=== PATIENT | female | born 1985 | race Caucasian/White ===

== ENCOUNTER 2017-03-04 09:14 | Emergency (ER) | payer OTHER ==
--- NOTE | 2017-03-04 09:49 | ED ORDER SUMMARY ---
..... Patient: VIC DARDEN OrderSheet [facility] VisitID: [id number] [address] [place] [place] [address] 31y, F Registration Date/Time: 03/04/2017 ORDER SHEET Weight: 59.8 kg (stated) Allergies: No Known Drug Allergy GENERAL ORDERS: MEDICATION ORDERS: Augmentin PO 875 mg (liquid please. patient unable to swallow pills well. ) (09:45 03/04/2017 Jennifer Taylor) (Ack 9:50 Geoff Molina) (Cancelled: Patient Refusal 10:05 Geoff Molina) IV FLUIDS: ORDER SHEET NOTES: [Electronically signed by Simi Plascencia R.N. (11:14 03/04/2017)] [Electronically signed by Gabriel Holland Dr. (16:24 03/08/2017)] [Electronically locked/signed by Simi Plascencia R.N. (11:14 03/04/2017)]
--- NOTE | 2017-03-04 09:49 | ED NURSING NOTES ---
Clinical Report - Nurses [facility] [address] [place] [address] 03/04/2017 9:15 Patient: VIC DARDEN TRIAGE Triage time 09:32. Acuity: LEVEL 4. Chief Complaint: HEADACHE. Alert. No acute distress. JANELLE COMA SCORE: Janelle Coma Scale: 15- eyes open spontaneously (4); best verbal response- oriented x 4 (5); best motor response- obeys commands (6). --09:37 Simi Plascencia R.N. 09:32 03/04/17. BP: 112/69. HR: 79. RR: 16. O2 saturation: 100% on room air. Temp: 98.3 F (oral). Pain level now: 04/10. --09:37 Simi Plascencia R.N. Weight: 59.8 kg stated. Height/Length: 66 inches Per Patient. BMI: 21.3. --09:36 Simi Plascencia R.N. Medications None. --09:32 Simi Plascencia R.N. Medication/allergy information source: the patient. --09:37 Simi Plascencia R.N. Allergies No Known Drug Allergy. --09:32 Simi Plascencia R.N. History Arrived by private vehicle. Historian: patient. Accompanied by (her children). Primary physician (Shravan). This started about 3 days. ( intermittent for 3 months). PAST MEDICAL HX: Last normal menstrual period- January 2017. SOCIAL HX: Heavy tobacco smoker- less than 1 pack per day. No alcohol use or drug use. FALL RISK ASSESSMENT: Fall risk assessment completed. No fall risk identified. FUNCTIONAL ASSESSMENT: Functional assessment: no impairments noted. LEARNING NEEDS ASSESSMENT: The learning needs assessment revealed no barriers. --09:37 iSmi Plascencia R.N. PROBLEMS: Cystitis. Strep Throat. Abscess. Pharyngitis. Bronchitis. Sinusitis. URI. Anxiety Reaction. --09:33 Simi Plascencia R.N. ADDITIONAL SURGERIES: Lump removed right breast. Polyps on cervix. --09:33 Simi Plascencia R.N. Assessment GENERAL / NEURO / PSYCH: Alert. Oriented X 4. Appears in no acute distress. Patient appears calm and cooperative. RESPIRATORY: Respirations not labored. SKIN: Skin is warm and dry. --09:37 Simi Plascencia R.N. Interventions ID band on patient. To treatment room. --09:37 Simi Plascencia R.N. PHYSICAL ASSESSMENT 10:04 03/04/17. Ambulatory to room. GENERAL / NEURO / PSYCH: Alert. Oriented X 4. Appears in no acute distress. Speech within normal limits. RESPIRATORY: Respirations not labored. SKIN: Skin is warm and dry. --10:04 Simi Plascencia R.N. NURSING PROGRESS NOTES 10:04 03/04/17. Call light placed in reach. Patient placed in chair. --10:04 Simi Plascencia R.N. 10:08 pt refused the first dose of Augmentin offered, she wants to eat then get her meds from the pharmacy. --11:05 Simi Plascencia R.N. 10:25. The patient is calm and resting quietly. Overall patient status is the same- she states feels the same. GENERAL / NEURO / PSYCH: Alert. Oriented X 4. RESPIRATORY: No respiratory distress. SKIN: Skin is warm and dry. --11:06 Simi Plascencia R.N. DISPOSITION / DISCHARGE Departure time: 1025. Condition at departure: stable. No learning barriers present. Discharge instructions provided and reviewed with the patient. Reviewed medication(s). Prescription(s) given to the patient. Patient verbalized understanding. Written instructions provided in [place]. The patient was discharged home and accompanied by children. She left the Emergency Department ambulatory and via private vehicle. Patient driving. FALL RISK ASSESSMENT: Fall risk assessment completed. No fall risk identified. --11:13 Siim Plascencia R.N. 10:25 03/04/17. Pain level now: 10. Additional comments: here under an hour. --11:13 Simi Plascencia R.N. Locked/Released at 03/04/2017 11:14 by Simi Plascencia R.N.
--- NOTE | 2017-03-04 09:49 | ED NURSING NOTES ---
Clinical Report - Nurses [facility] [address] [place] [address] 03/04/2017 9:15 Patient: VIC DARDEN TRIAGE Triage time 09:32. Acuity: LEVEL 4. Chief Complaint: HEADACHE. Alert. No acute distress. JANELLE COMA SCORE: Janelle Coma Scale: 15- eyes open spontaneously (4); best verbal response- oriented x 4 (5); best motor response- obeys commands (6). --09:37 Simi Plascencia R.N. 09:32 03/04/17. BP: 112/69. HR: 79. RR: 16. O2 saturation: 100% on room air. Temp: 98.3 F (oral). Pain level now: 04/10. --09:37 Simi Plascencia R.N. Weight: 59.8 kg stated. Height/Length: 66 inches Per Patient. BMI: 21.3. --09:36 Simi Plascencia R.N. Medications None. --09:32 Simi Plascencia R.N. Medication/allergy information source: the patient. --09:37 Simi Plascencia R.N. Allergies No Known Drug Allergy. --09:32 Simi Plascencia R.N. History Arrived by private vehicle. Historian: patient. Accompanied by (her children). Primary physician (Shravan). This started about 3 days. ( intermittent for 3 months). PAST MEDICAL HX: Last normal menstrual period- January 2017. SOCIAL HX: Heavy tobacco smoker- less than 1 pack per day. No alcohol use or drug use. FALL RISK ASSESSMENT: Fall risk assessment completed. No fall risk identified. FUNCTIONAL ASSESSMENT: Functional assessment: no impairments noted. LEARNING NEEDS ASSESSMENT: The learning needs assessment revealed no barriers. --09:37 Simi Plascencia R.N. PROBLEMS: Cystitis. Strep Throat. Abscess. Pharyngitis. Bronchitis. Sinusitis. URI. Anxiety Reaction. --09:33 Simi Plascencia R.N. ADDITIONAL SURGERIES: Lump removed right breast. Polyps on cervix. --09:33 Simi Plascencia R.N. Assessment GENERAL / NEURO / PSYCH: Alert. Oriented X 4. Appears in no acute distress. Patient appears calm and cooperative. RESPIRATORY: Respirations not labored. SKIN: Skin is warm and dry. --09:37 Simi Plascencia R.N. Interventions ID band on patient. To treatment room. --09:37 Simi Plascencia R.N. PHYSICAL ASSESSMENT 10:04 03/04/17. Ambulatory to room. GENERAL / NEURO / PSYCH: Alert. Oriented X 4. Appears in no acute distress. Speech within normal limits. RESPIRATORY: Respirations not labored. SKIN: Skin is warm and dry. --10:04 Simi Plascencia R.N. NURSING PROGRESS NOTES 10:04 03/04/17. Call light placed in reach. Patient placed in chair. --10:04 Simi Plascencia R.N. 10:08 pt refused the first dose of Augmentin offered, she wants to eat then get her meds from the pharmacy. --11:05 Simi Plascencia R.N. 10:25. The patient is calm and resting quietly. Overall patient status is the same- she states feels the same. GENERAL / NEURO / PSYCH: Alert. Oriented X 4. RESPIRATORY: No respiratory distress. SKIN: Skin is warm and dry. --11:06 Simi Plascencia R.N. DISPOSITION / DISCHARGE Departure time: 1025. Condition at departure: stable. No learning barriers present. Discharge instructions provided and reviewed with the patient. Reviewed medication(s). Prescription(s) given to the patient. Patient verbalized understanding. Written instructions provided in [place]. The patient was discharged home and accompanied by children. She left the Emergency Department ambulatory and via private vehicle. Patient driving. FALL RISK ASSESSMENT: Fall risk assessment completed. No fall risk identified. --11:13 Simi Plascencia R.N. 10:25 03/04/17. Pain level now: 10. Additional comments: here under an hour. --11:13 Simi Plascencia R.N. Locked/Released at 03/04/2017 11:14 by Simi Plascencia R.N.
--- NOTE | 2017-03-04 09:49 | ED CLINICAL REPORT ---
Clinical Report - Physicians/Mid Levels [facility] [address] [place] [address] 03/04/2017 9:15 Patient: VIC DARDEN Time Seen: 0916; initial patient contact. Arrived- By private vehicle. Historian- patient. HISTORY OF PRESENT ILLNESS Chief Complaint: COUGH, SORE THROAT and SINUS PAIN. This started past several days but off and on for the past 3 months and is still present (unchanged). It was abrupt in onset and has been constant but is not gone now. The illness is described as moderate. The patient has had a cough, nasal congestion, sinus pressure and a nasal discharge. No fever or chills. Additional history - The patient has had contact with a sick individual. (family at home). Similar symptoms previously: None. Recent medical care: Not recently seen/assessed. REVIEW OF SYSTEMS No eye discomfort, nausea, vomiting, diarrhea or abdominal pain. No skin rash. All systems otherwise negative, except as recorded above. PAST HISTORY See nurses notes. SOCIAL HISTORY Smoker- current status unknown. No alcohol use or drug use. No recent travel. Is a local resident. ADDITIONAL NOTES The nursing notes have been reviewed. PHYSICAL EXAM Vital Signs: 03/04/2017 09:32 BP: 112/69. HR: 79. RR: 16. O2 saturation: 100%. Temp: 98.3 F. Pain level now: 6/10. Blood pressure normal. Oxygen saturation normal. Appearance: Alert. No acute distress. Head: Tenderness present to percussion/palpation of the sinuses: mild right and left frontal tenderness, left maxillary tenderness. Eyes: Pupils equal, round and reactive to light. Eyes normal inspection. ENT: Ears normal. Nose normal. Uvula midline. (no evidence of pots puffy tumor). (mild posterior pharynx hyperemia without swelling or masses. uvula midline.). Neck: Normal inspection. Mild right anterior neck lymphadenopathy present. Neck supple. No meningeal signs. CVS: Normal heart rate and rhythm. Heart sounds normal. Pulses normal. Respiratory: No respiratory distress. Breath sounds normal. No rales, rhonchi, wheezes or stridor. Abdomen: Soft and nontender. No organomegaly. Back: Normal inspection. Skin: Skin warm and dry. Normal skin color. No rash. Normal skin turgor. Extremities: Extremities exhibit normal ROM. No lower extremity edema. Neuro: Oriented X 3. No motor deficit. No sensory deficit. PROGRESS AND PROCEDURES Course of Care: The patient is a pleasant 31 yo female with smoking history presenting for evaluation of URI symptoms. Differential at this time is sinusitis, strep pharyngitis, or viral URI. Had discussion with patient in regards to rapid strep, conservative management, and abx treatment. After this discussion, patient agreeable to course of abx. Due to the treatment with augmentin, do not feel rapid strep would size changer. patient also with clear lungs, no fever, and non-toxic appearance. DO not feel patient has meningitis or serious bacterial infection. Do not feel benefit of chest xray outweighs the risk of radiation exposure. All questions answered. Patient agreeable to plan. Prior to discharge patient reevaluated and doing well. No other concerns. Discussed with patient her work up here in the ED including diagnosis, home care, follow up, and return precautions. All questions answered. Patient expressed understanding of these instructions and was agreeable to them. Disposition: Discharged. Condition: good. CLINICAL IMPRESSION 03/04/2017 09:32 BP: 112/69. HR: 79. RR: 16. O2 saturation: 100%. Temp: 98.3 F. Pain level now: 6/10. Blood pressure normal. Oxygen saturation normal. Acute maxillary and ethmoidal sinusitis INSTRUCTIONS Warnings: GENERAL WARNINGS: Return or contact your physician immediately if your condition worsens or changes unexpectedly, if not improving as expected, or if other problems arise. Specifically return if pain, vomiting, bleeding, breathing difficulty or fever. Your Current Medications: CONTINUE TAKING THE FOLLOWING MEDICATIONS: None*. Prescription Medications: Augmentin Liquid 600mg/5 mL: take seven (7) mL orally every 12 hours for 10 days. No refill. Substitution is permissible. (Disp suff quant) OTC Medications: Claritin 10 mg (available over the counter): take 1 tablet orally every 12 hours as needed for congestion. Dispense thirty (30). No refill. Substitution is permissible. Follow-up: Return to the emergency department as needed. Follow up with your doctor in three days. Reason for referral: recheck today's concerns. Summary of care provided to patient via paper. Screening today revealed the patient's blood pressure to be in the normal range. The patient should follow up with a primary care provider for blood pressure management. Understanding of the discharge instructions verbalized by patient. (Electronically signed by Gabriel Holland Dr. 03/08/2017 16:24)
--- NOTE | 2017-03-04 09:49 | ED ORDER SUMMARY ---
..... Patient: VIC DARDEN OrderSheet [facility] VisitID: [id number] [address] [place] [address] 31y, F Registration Date/Time: 03/04/2017 ORDER SHEET Weight: 59.8 kg (stated) Allergies: No Known Drug Allergy GENERAL ORDERS: MEDICATION ORDERS: Augmentin PO 875 mg (liquid please. patient unable to swallow pills well. ) (09:45 03/04/2017 Jennifer Taylor) (Ack 9:50 Geoff Molina) (Cancelled: Patient Refusal 10:05 Geoff Molina) IV FLUIDS: ORDER SHEET NOTES: [Electronically signed by Simi Plascencia R.N. (11:14 03/04/2017)] [Electronically signed by Gabriel Holland Dr. (16:24 03/08/2017)] [Electronically locked/signed by Simi Plascencia R.N. (11:14 03/04/2017)]
--- NOTE | 2017-03-08 16:24 | ED MAR SUMMARY ---
..... Medication Administration Record [facility] [address], [place] [id number] Patient: VIC DARDEN Visit ID: [id number] 31y, F Weight: 59.8 kg Height/Length: 66 in BMI: 21.3 ALLERGIES: No Known Drug Allergy
--- NOTE | 2017-03-08 16:24 | ED MED RECONCILIATION SUMMARY ---
Patient: VIC DARDEN Medication Reconciliation Report [facility] VisitID: [id number] [address] [place] [address] 31y, F Registration Date/Time: 03/04/2017 Weight: 59.8 kg Height/Length: 66 in. BMI: 21.3 ALLERGIES: No Known Drug Allergy The patient's Home Medications are listed below: NONE. The source(s) of the original Home Medication information: patient The following Medications were given to the patient in the Emergency Department: None. The following Medications were prescribed to the patient: Augmentin Liquid 600mg/5 mL: take seven (7) mL orally every 12 hours for 10 days. No refill. Substitution is permissible.(Disp suff quant) -- Gabriel Holland Dr. Claritin 10 mg (available over the counter): take 1 tablet orally every 12 hours as needed for congestion. Dispense thirty (30). No refill. Substitution is permissible. -- Gabriel Holland Dr.
--- NOTE | 2017-03-08 16:24 | ED DISCHARGE INSTRUCTIONS ---
Patient: VIC DARDEN General Instructions [facility] VisitID: [id number] [place] [address] 31y, F Registration Date/Time: 03/04/2017 03/04/2017 09:32 BP: 112/69. HR: 79. RR: 16. O2 saturation: 100%. Temp: 98.3 F. Pain level now: 6/10. Blood pressure normal. Oxygen saturation normal. Acute maxillary and ethmoidal sinusitis INSTRUCTIONS Warnings: GENERAL WARNINGS: Return or contact your physician immediately if your condition worsens or changes unexpectedly, if not improving as expected, or if other problems arise. Specifically return if pain, vomiting, bleeding, breathing difficulty or fever. Your Current Medications: CONTINUE TAKING THE FOLLOWING MEDICATIONS: None*. Prescription Medications: Augmentin Liquid 600mg/5 mL: take seven (7) mL orally every 12 hours for 10 days. No refill. Substitution is permissible. (Disp suff quant) OTC Medications: Claritin 10 mg (available over the counter): take 1 tablet orally every 12 hours as needed for congestion. Dispense thirty (30). No refill. Substitution is permissible. Follow-up: Return to the emergency department as needed. Follow up with your doctor in three days. Reason for referral: recheck today's concerns. Summary of care provided to patient via paper. Screening today revealed the patient's blood pressure to be in the normal range. The patient should follow up with a primary care provider for blood pressure management. Understanding of the discharge instructions verbalized by patient. ADDITIONAL INFORMATION Sinusitis [Abx Tx] The sinuses are air-filled spaces within the bones of the face. They connect to the inside of the nose. Sinusitis is an inflammation of the tissue lining the sinus cavity. Sinus inflammation can occur during a cold or hay-fever (allergies to pollens and other particles in the air) and cause symptoms of sinus congestion and fullness. A sinus infection causes fever, headache and facial pain. There is usually green or yellow drainage from the nose or into the back of the throat (post-nasal drip). Antibiotics are prescribed to treat this condition. Home Care: Drink plenty of water, hot tea, and other liquids to stay well hydrated. This thins the mucus and promotes sinus drainage. Apply heat to the painful areas of the face. Use a towel soaked in hot water. Or, group leader semiconductor processing the shower and direct the hot spray onto your face. This is a good way to inhale warm water vapor and get heat on your face at the same time. (Cover your mouth and nose with your hands so you can still breathe as you do this.) Use a vaporizer with products such as [employer] VapoRub (contains menthol) at night. Suck on peppermint, menthol or eucalyptus hard candies during the day. An expectorant containing guaifenesin (such as Robitussin), helps to thin the mucus and promote drainage from the sinuses. Rjla-mod-goscfiz decongestants may be used unless a similar medicine was prescribed. Nasal sprays work the fastest. Use one that contains phenylephrine (Angel-synephrine, Sinex and others) or oxymetazoline (Afrin). First blow the nose gently to remove mucus, then apply the drops. Do not use these medicines more often than directed on the label or for more than three days or symptoms may worsen. You may also use tablets containing pseudoephedrine (Sudafed). Many sinus remedies combine ingredients, which may increase side effects. Read the labels or ask the pharmacist for help. NOTE: Persons with high blood pressure should not use decongestants. They can raise blood pressure. Antihistamines are useful if allergies are a cause of your sinusitis. The mildest one is chlorpheniramine (available without a prescription). The dose for adults is 8-12mg three times a day. [NOTE: Do not use chlorpheniramine if you have glaucoma or if you are a man with trouble urinating due to an enlarged prostate.] Claritin (loratidine) is an antihistamine that causes less drowsiness and is a good alternative for daytime use. Do not use nasal rinses or irrigation during an acute sinus infection, unless advised by your doctor. Rinsing may spread the infection to other sinuses. You may use acetaminophen (Tylenol) or ibuprofen (Motrin, Advil) to control pain, unless another pain medicine was prescribed. [ NOTE: If you have chronic liver or kidney disease or ever had a stomach ulcer, talk with your doctor before using these medicines.] (Aspirin should never be used in anyone under 18 years of age who is ill with a fever. It may cause severe liver damage.) Finish the full course, even if you are feeling better after a few days. Follow Up with your doctor or this facility in one week or as instructed by our staff if not improving. Get Prompt Medical Attention if any of the following occur: Facial pain or headache becomes more severe Stiff neck Unusual drowsiness or confusion, or not acting like your normal self Swelling of the forehead or eyelids Vision problems including blurred or double vision Fever of 100.4F (38C) or higher, or as directed by your healthcare provider Seizure Amoxicillin Trihydrate, Clavulanate Potassium Oral suspension What is this medicine? AMOXICILLIN; CLAVULANIC ACID (a mox i SILL in; JONATHAN cardona ic id) is a penicillin antibiotic. It is used to treat certain kinds of bacterial infections. It will not work for colds, flu, or other viral infections. How should I use this medicine? Take this medicine by mouth just before a meal or snack. Follow the directions on the prescription label. Shake well before using. Use a specially marked spoon or container to measure your medicine. Ask your pharmacist if you do not have one. Household spoons are not accurate. Bottles of suspension may contain more liquid than you need to take. Follow your doctor's instructions about how much to take and for how many days to take it. Do not take more medicine than directed. But, finish all the medicine that is prescribed even if you think you are better. Talk to your pharmacy clinical specialist regarding the use of this medicine in children. While this drug may be prescribed for children as young as newborns for selected conditions, precautions do apply. What side effects may I notice from receiving this medicine? Side effects that you should report to your doctor or health home health care coordinator as soon as possible: allergic reactions like skin rash, itching or hives, swelling of the face, lips, or tongue breathing problems dark urine fever or chills, sore throat redness, blistering, peeling or loosening of the skin, including inside the mouth seizures trouble passing urine or change in the amount of urine unusual bleeding, bruising unusually weak or tired white patches or sores in the mouth or throat Side effects that usually do not require medical attention (report to your doctor or health home health care coordinator if they continue or are bothersome): diarrhea dizziness headache nausea, vomiting stomach upset vaginal or anal irritation What may interact with this medicine? allopurinol anticoagulants control pills methotrexate probenecid What if I miss a dose? If you miss a dose, take it as soon as you can. If it is almost time for your next dose, take only that dose. Do not take double or extra doses. Where should I keep my medicine? Keep out of the reach of children. After this medicine is mixed by your pharmacist, store it in a refrigerator. Do not freeze. Throw away any unused medicine after 10 days. What should I tell my health care provider before I take this medicine? They need to know if you have any of these conditions: bowel disease, like colitis kidney disease liver disease mononucleosis phenylketonuria an unusual or allergic reaction to amoxicillin, penicillin, cephalosporin, other antibiotics, clavulanic acid, other medicines, foods, dyes, or preservatives or trying to get breast-feeding What should I watch for while using this medicine? Tell your doctor or health home health care coordinator if your symptoms do not improve. Do not treat diarrhea with over the counter products. Contact your doctor if you have diarrhea that lasts more than 2 days or if it is severe and watery. If you have diabetes, you may get a false-positive result for sugar in your urine. Check with your doctor or health home health care coordinator. control pills may not work properly while you are taking this medicine. Talk to your doctor about using an extra method of control. Loratadine Oral disintegrating tablet What is this medicine? LORATADINE (jen AT a aleksandr) is an antihistamine. It helps to relieve sneezing, runny nose, and itchy, watery eyes. This medicine is used to treat the symptoms of indoor and outdoor allergies. It is also used to treat itchy skin rash and hives. How should I use this medicine? Take this medicine by mouth, with or without water. Follow the directions on the label. You may take this medicine with food or on an empty stomach. Leave the disintegrating tablet in the blister package until you are ready to take it. Peel open the blister pack with dry hands and place the tablet on your tongue. Allow the tablet to dissolve completely then swallow. Take your medicine at regular intervals. Do not take your medicine more often than directed. Talk to your pharmacy clinical specialist regarding the use of this medicine in children. While this drug may be prescribed for children as young as 6 years for selected conditions, precautions do apply. What side effects may I notice from receiving this medicine? Side effects that you should report to your doctor or health home health care coordinator as soon as possible: allergic reactions like skin rash, itching or hives, swelling of the face, lips, or tongue breathing problems unusually restless or nervous Side effects that usually do not require medical attention (report to your doctor or health home health care coordinator if they continue or are bothersome): drowsiness dry or irritated mouth or throat headache What may interact with this medicine? other medicines for colds or allergies What if I miss a dose? If you miss a dose, take it as soon as you can. If it is almost time for your next dose, take only that dose. Do not take double or extra doses. Where should I keep my medicine? Keep out of the reach of children. Store at room temperature between 20 and 25 degrees C (68 and 77 degrees F). Protect from moisture. Throw away any unused medicine after the expiration date. What should I tell my health care provider before I take this medicine? They need to know if you have any of these conditions: asthma kidney disease liver disease an unusual or allergic reaction to loratadine, other antihistamines, other medicines, foods, dyes, or preservatives or trying to get breast-feeding What should I watch for while using this medicine? Tell your doctor or healthcare professional if your symptoms do not start to get better or if they get worse. Your mouth may get dry. Chewing sugarless gum or sucking hard candy, and drinking plenty of water may help. Contact your doctor if the problem does not go away or is severe. You may get drowsy or dizzy. Do not drive, use machinery, or do anything that needs mental alertness until you know how this medicine affects you. Do not stand or sit up quickly, especially if you are an older patient. This reduces the risk of dizzy or fainting spells. You have been given the following additional information: Sinusitis, Abx Tx Amoxicillin Trihydrate, Clavulanate Potassium Oral suspension Loratadine Oral disintegrating tablet (Electronically signed by Gabriel Holland Dr. 03/08/2017 16:24)
--- NOTE | 2017-03-08 16:24 | ED MAR SUMMARY ---
..... Medication Administration Record [facility] [address] [place], [place] [id number] Patient: VIC DARDEN Visit ID: [id number] 31y, F Weight: 59.8 kg Height/Length: 66 in BMI: 21.3 ALLERGIES: No Known Drug Allergy
--- NOTE | 2017-03-08 16:24 | ED DISCHARGE INSTRUCTIONS ---
Patient: VIC DARDEN General Instructions [facility] VisitID: [id number] [place] [address] 31y, F Registration Date/Time: 03/04/2017 03/04/2017 09:32 BP: 112/69. HR: 79. RR: 16. O2 saturation: 100%. Temp: 98.3 F. Pain level now: 6/10. Blood pressure normal. Oxygen saturation normal. Acute maxillary and ethmoidal sinusitis INSTRUCTIONS Warnings: GENERAL WARNINGS: Return or contact your physician immediately if your condition worsens or changes unexpectedly, if not improving as expected, or if other problems arise. Specifically return if pain, vomiting, bleeding, breathing difficulty or fever. Your Current Medications: CONTINUE TAKING THE FOLLOWING MEDICATIONS: None*. Prescription Medications: Augmentin Liquid 600mg/5 mL: take seven (7) mL orally every 12 hours for 10 days. No refill. Substitution is permissible. (Disp suff quant) OTC Medications: Claritin 10 mg (available over the counter): take 1 tablet orally every 12 hours as needed for congestion. Dispense thirty (30). No refill. Substitution is permissible. Follow-up: Return to the emergency department as needed. Follow up with your doctor in three days. Reason for referral: recheck today's concerns. Summary of care provided to patient via paper. Screening today revealed the patient's blood pressure to be in the normal range. The patient should follow up with a primary care provider for blood pressure management. Understanding of the discharge instructions verbalized by patient. ADDITIONAL INFORMATION Sinusitis [Abx Tx] The sinuses are air-filled spaces within the bones of the face. They connect to the inside of the nose. Sinusitis is an inflammation of the tissue lining the sinus cavity. Sinus inflammation can occur during a cold or hay-fever (allergies to pollens and other particles in the air) and cause symptoms of sinus congestion and fullness. A sinus infection causes fever, headache and facial pain. There is usually green or yellow drainage from the nose or into the back of the throat (post-nasal drip). Antibiotics are prescribed to treat this condition. Home Care: Drink plenty of water, hot tea, and other liquids to stay well hydrated. This thins the mucus and promotes sinus drainage. Apply heat to the painful areas of the face. Use a towel soaked in hot water. Or, school standards coach the shower and direct the hot spray onto your face. This is a good way to inhale warm water vapor and get heat on your face at the same time. (Cover your mouth and nose with your hands so you can still breathe as you do this.) Use a vaporizer with products such as [employer] VapoRub (contains menthol) at night. Suck on peppermint, menthol or eucalyptus hard candies during the day. An expectorant containing guaifenesin (such as Robitussin), helps to thin the mucus and promote drainage from the sinuses. Zusa-jrf-[id number] decongestants may be used unless a similar medicine was prescribed. Nasal sprays work the fastest. Use one that contains phenylephrine (Angel-synephrine, Sinex and others) or oxymetazoline (Afrin). First blow the nose gently to remove mucus, then apply the drops. Do not use these medicines more often than directed on the label or for more than three days or symptoms may worsen. You may also use tablets containing pseudoephedrine (Sudafed). Many sinus remedies combine ingredients, which may increase side effects. Read the labels or ask the pharmacist for help. NOTE: Persons with high blood pressure should not use decongestants. They can raise blood pressure. Antihistamines are useful if allergies are a cause of your sinusitis. The mildest one is chlorpheniramine (available without a prescription). The dose for adults is 8-12mg three times a day. [NOTE: Do not use chlorpheniramine if you have glaucoma or if you are a man with trouble urinating due to an enlarged prostate.] Claritin (loratidine) is an antihistamine that causes less drowsiness and is a good alternative for daytime use. Do not use nasal rinses or irrigation during an acute sinus infection, unless advised by your doctor. Rinsing may spread the infection to other sinuses. You may use acetaminophen (Tylenol) or ibuprofen (Motrin, Advil) to control pain, unless another pain medicine was prescribed. [ NOTE: If you have chronic liver or kidney disease or ever had a stomach ulcer, talk with your doctor before using these medicines.] (Aspirin should never be used in anyone under 18 years of age who is ill with a fever. It may cause severe liver damage.) Finish the full course, even if you are feeling better after a few days. Follow Up with your doctor or this facility in one week or as instructed by our staff if not improving. Get Prompt Medical Attention if any of the following occur: Facial pain or headache becomes more severe Stiff neck Unusual drowsiness or confusion, or not acting like your normal self Swelling of the forehead or eyelids Vision problems including blurred or double vision Fever of 100.4F (38C) or higher, or as directed by your healthcare provider Seizure Amoxicillin Trihydrate, Clavulanate Potassium Oral suspension What is this medicine? AMOXICILLIN; CLAVULANIC ACID (a mox i SILL in; JONATHAN cardona ic id) is a penicillin antibiotic. It is used to treat certain kinds of bacterial infections. It will not work for colds, flu, or other viral infections. How should I use this medicine? Take this medicine by mouth just before a meal or snack. Follow the directions on the prescription label. Shake well before using. Use a specially marked spoon or container to measure your medicine. Ask your pharmacist if you do not have one. Household spoons are not accurate. Bottles of suspension may contain more liquid than you need to take. Follow your doctor's instructions about how much to take and for how many days to take it. Do not take more medicine than directed. But, finish all the medicine that is prescribed even if you think you are better. Talk to your insurance sales agent regarding the use of this medicine in children. While this drug may be prescribed for children as young as newborns for selected conditions, precautions do apply. What side effects may I notice from receiving this medicine? Side effects that you should report to your doctor or health healthcare liaison as soon as possible: allergic reactions like skin rash, itching or hives, swelling of the face, lips, or tongue breathing problems dark urine fever or chills, sore throat redness, blistering, peeling or loosening of the skin, including inside the mouth seizures trouble passing urine or change in the amount of urine unusual bleeding, bruising unusually weak or tired white patches or sores in the mouth or throat Side effects that usually do not require medical attention (report to your doctor or health healthcare liaison if they continue or are bothersome): diarrhea dizziness headache nausea, vomiting stomach upset vaginal or anal irritation What may interact with this medicine? allopurinol anticoagulants control pills methotrexate probenecid What if I miss a dose? If you miss a dose, take it as soon as you can. If it is almost time for your next dose, take only that dose. Do not take double or extra doses. Where should I keep my medicine? Keep out of the reach of children. After this medicine is mixed by your pharmacist, store it in a refrigerator. Do not freeze. Throw away any unused medicine after 10 days. What should I tell my health care provider before I take this medicine? They need to know if you have any of these conditions: bowel disease, like colitis kidney disease liver disease mononucleosis phenylketonuria an unusual or allergic reaction to amoxicillin, penicillin, cephalosporin, other antibiotics, clavulanic acid, other medicines, foods, dyes, or preservatives or trying to get breast-feeding What should I watch for while using this medicine? Tell your doctor or health healthcare liaison if your symptoms do not improve. Do not treat diarrhea with over the counter products. Contact your doctor if you have diarrhea that lasts more than 2 days or if it is severe and watery. If you have diabetes, you may get a false-positive result for sugar in your urine. Check with your doctor or health healthcare liaison. control pills may not work properly while you are taking this medicine. Talk to your doctor about using an extra method of control. Loratadine Oral disintegrating tablet What is this medicine? LORATADINE (jen AT a aleksandr) is an antihistamine. It helps to relieve sneezing, runny nose, and itchy, watery eyes. This medicine is used to treat the symptoms of indoor and outdoor allergies. It is also used to treat itchy skin rash and hives. How should I use this medicine? Take this medicine by mouth, with or without water. Follow the directions on the label. You may take this medicine with food or on an empty stomach. Leave the disintegrating tablet in the blister package until you are ready to take it. Peel open the blister pack with dry hands and place the tablet on your tongue. Allow the tablet to dissolve completely then swallow. Take your medicine at regular intervals. Do not take your medicine more often than directed. Talk to your insurance sales agent regarding the use of this medicine in children. While this drug may be prescribed for children as young as 6 years for selected conditions, precautions do apply. What side effects may I notice from receiving this medicine? Side effects that you should report to your doctor or health healthcare liaison as soon as possible: allergic reactions like skin rash, itching or hives, swelling of the face, lips, or tongue breathing problems unusually restless or nervous Side effects that usually do not require medical attention (report to your doctor or health healthcare liaison if they continue or are bothersome): drowsiness dry or irritated mouth or throat headache What may interact with this medicine? other medicines for colds or allergies What if I miss a dose? If you miss a dose, take it as soon as you can. If it is almost time for your next dose, take only that dose. Do not take double or extra doses. Where should I keep my medicine? Keep out of the reach of children. Store at room temperature between 20 and 25 degrees C (68 and 77 degrees F). Protect from moisture. Throw away any unused medicine after the expiration date. What should I tell my health care provider before I take this medicine? They need to know if you have any of these conditions: asthma kidney disease liver disease an unusual or allergic reaction to loratadine, other antihistamines, other medicines, foods, dyes, or preservatives or trying to get breast-feeding What should I watch for while using this medicine? Tell your doctor or healthcare professional if your symptoms do not start to get better or if they get worse. Your mouth may get dry. Chewing sugarless gum or sucking hard candy, and drinking plenty of water may help. Contact your doctor if the problem does not go away or is severe. You may get drowsy or dizzy. Do not drive, use machinery, or do anything that needs mental alertness until you know how this medicine affects you. Do not stand or sit up quickly, especially if you are an older patient. This reduces the risk of dizzy or fainting spells. You have been given the following additional information: Sinusitis, Abx Tx Amoxicillin Trihydrate, Clavulanate Potassium Oral suspension Loratadine Oral disintegrating tablet (Electronically signed by Gabriel Holland Dr. 03/08/2017 16:24)
--- NOTE | 2017-03-08 16:24 | ED MED RECONCILIATION SUMMARY ---
Patient: VIC DARDEN Medication Reconciliation Report [facility] VisitID: [id number] [address] [place] [address] 31y, F Registration Date/Time: 03/04/2017 Weight: 59.8 kg Height/Length: 66 in. BMI: 21.3 ALLERGIES: No Known Drug Allergy The patient's Home Medications are listed below: NONE. The source(s) of the original Home Medication information: patient The following Medications were given to the patient in the Emergency Department: None. The following Medications were prescribed to the patient: Augmentin Liquid 600mg/5 mL: take seven (7) mL orally every 12 hours for 10 days. No refill. Substitution is permissible.(Disp suff quant) -- Gabriel Holland Dr. Claritin 10 mg (available over the counter): take 1 tablet orally every 12 hours as needed for congestion. Dispense thirty (30). No refill. Substitution is permissible. -- Gabriel Holland Dr.
== END 2017-03-04 10:25 | disposition home or self-care (01) ==
LOC: ED SRH 09:14
DX: J01.00 Acute maxillary sinusitis, unspecified (principal); J01.20 Acute ethmoidal sinusitis, unspecified